=== PATIENT | female | born 1975 | race Hispanic/Latino ===

== ENCOUNTER 2016-11-07 08:24 | Day surgery (SDC) | payer OTHER ==
[~2016-11-07] VITALS: Ht 157.5 cm; Wt 77.1 kg
[~2016-11-07 08:24] MED LIST: 0.9% Sodium Chloride 1,000 ML IV SCH; FENO145T19 PO; LISI-567 PO; OMEP20CA11 PO; Sodium Chloride LOK Flush 10 mL Syringe IV PRN; fentaNYL-PF 50 mCg/mL 2 mL Inj IVPUSH PRN
[2016-11-07 08:47] VITALS: BP 134/88; PULSE 66; RESP 16; O2SAT 98
--- NOTE | 2016-11-07 10:11 | ENDO ---
[address] [address] ENDOSCOPY PROCEDURE PATIENT: GULSHAN SAEED : 1975 MR#: [id number] ADMIT: 11/07/2016 JOB ID: [id number] TYPE OF OPERATION: Esophagogastroduodenoscopy with biopsy. PREOPERATIVE DIAGNOSIS: Gastroesophageal reflux disease. POSTOPERATIVE DIAGNOSIS: Small hiatal hernia. ANESTHESIA: Fentanyl 100 mcg and Versed 5 mg IV administered. COMPLICATIONS: None. BLOOD LOSS: Minimal. DESCRIPTION OF PROCEDURE: After risks and benefits was explained the patient's informed consent was obtained. After anesthesia administered, upper endoscope was inserted into the mouth, intubated into the esophagus, stomach, and second portion of duodenum. Mucosa carefully examined. After procedure was done, the scope was withdrawn and the procedure terminated. Upon inspection of the esophagus, the esophagus was normal without masses, ulcers, or lesions. Z-line located 35 cm from incisors. Upon entering the stomach, the stomach was also normal without masses, ulcers, or lesions. Retroflexion showed small hiatal hernia. Duodenal bulb, first and second portion normal. Biopsies of the antrum, body of the stomach, and distal esophagus. IMPRESSION: Small hiatal hernia. RECOMMENDATION: Await pathology results. Follow up in GI clinic as needed.
[2016-11-07 10:22] VITALS: BP 114/68; PULSE 58; RESP 14; O2SAT 97
[2016-11-07 10:37] VITALS: BP 112/62; PULSE 58; RESP 16; O2SAT 98
--- NOTE | 2016-11-08 13:38 | PATH ---
SURGICAL PATHOLOGY Attending Physician:Jeff Villagomez MD CASE STATUS: Signed Out PATIENT NAME: GULSHAN SAEED PID: [id number] : 1975 DATE COLLECTED:11/07/2016 18:27 SPECIMEN: 1: Stomach, Antrum, Biopsy 2: Gastric, Biopsy 3: Esophagus, Biopsy CLINICAL HISTORY: 1). ANTRUM BIOPSY 2). GASTRIC BODY BIOPSY 3). DISTAL ESOPHAGUS BIOPSY FINAL DIAGNOSIS: 1.ANTRUM BIOPSY: MODERATE CHRONIC GASTRITIS INVOLVING ANTRAL MUCOSA. Immunohistochemistry for Helicobacter pending, to be reported by addendum. Negative for intestinal metaplasia. Negative for dysplasia and malignancy. 2.GASTRIC BODY BIOPSY: MILD TO MODERATE CHRONIC GASTRITIS, FOCALLY ACTIVE, INVOLVING FUNDIC MUCOSA. Immunohistochemistry for Helicobacter pending, to be reported by addendum. Negative for intestinal metaplasia. Negative for dysplasia and malignancy. 3.DISTAL ESOPHAGUS BIOPSY: SQUAMOUS MUCOSA AND GASTRIC OXYNTIC-TYPE MUCOSA, CHRONICALLY INFLAMED, WITH REACTIVE EPITHELIAL CHANGES. Negative for specialized metaplasia of Ruffin' s-type esophagus. Negative for dysplasia and malignancy. Negative for squamous intraepithelial eosinophils. ICD10 K29.70 GROSS DESCRIPTION: The specimen is received in three formalin filled containers labeled with the patient's name. 1). The specimen is sublabeled "antrum" and consists of 2 portions of tissue which aggregate to 0.3 x 0.2 x 0.2 CM. The specimen is entirely submitted in cassette 1A. 2). The specimen is sublabeled "gastric body" and consists of 3 portions of tissue which aggregate to 0.3 x 0.3 x 0.2 CM. The specimen is entirely submitted in cassette 2A. 3). The specimen is sublabeled "distal esophagus" and consists of 2 portions of tissue which aggregate to 0.3 x 0.2 x 0.2 CM. The specimen is entirely submitted in cassette 3A. 11/07/2016 [facility] MICRO DESCRIPTION: See diagnosis. 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 This test was developed and its performance characteristics determined by [employer]. It has not been cleared or approved by the [place]. Food and Drug Administration. The FDA has determined that such clearance or approval is not necessary. This test is used for clinical purposes. It should not be regarded as investigational or for research. Electronically Signed Out Jelani Urias MD Electronically Signed Out Jelani Urias MD [facility] Pathology [facility] [address], [place] [address] Technical component performed at [facility], [address], [place], [address]
== END 2016-11-07 23:59 | disposition home or self-care (01) ==
LOC: END 08:24
PROVIDERS: ATTEND Internal Medicine Gastroenterology
DX: K29.50 Unspecified chronic gastritis without bleeding (principal); A04.8 Other specified bacterial intestinal infections; K21.9 Gastro-esophageal reflux disease without esophagitis; I10 Essential (primary) hypertension; E78.5 Hyperlipidemia, unspecified; G51.0 Bell's palsy; E11.9 Type 2 diabetes mellitus without complications; D36.10 Benign neoplasm of peripheral nerves and autonomic nervous system, unspecified
CPT/HCPCS: 43239; 88305; 88342; G0500; J7030